=== PATIENT | male | born 1935 | race Caucasian/White ===

== ENCOUNTER 2018-08-08 17:55 | Emergency (ER) | payer MEDICARE, OTHER ==
[2018-08-08] MEDS ORDERED: Morphine VIAL* 10 MG/ML 1 ML VIAL IM ONE ×2 (18:37→21:10)
[2018-08-08] MEDS ORDERED: Morphine VIAL* 4 MG/ML VIAL (1 ml vial) IV ONE ×2 (18:44→18:46)
--- NOTE | 2018-08-08 19:04 | ED ---
Lower Extremity - HPI Summary HPI Summary: 82 year old male presents with right knee pain today. He was mowing the lawn today and felt pain in his right knee. He states his left knee is normally the one that bothers him. He states he is not able to place weight on the area as it hurts so much. He denies any numbness or tingling. No pain in his calf muscles. No injury to the area. No fevers. No back pain. no chest pain or shortness of breath. No other symptoms. He took some liquid ibuprofen prior to coming. He is on Coumadin for history of blood clots. - History of Current Complaint Chief Complaint: EDExtremityLower Stated Complaint: KNEE PAIN Time Seen by Provider: 08/08/18 18:13 Pain Intensity: 10 - Allergies/Home Medications Allergies/Adverse Reactions: Allergies Allergy/AdvReac Type Severity Reaction Status Date / Time No Known Allergies Allergy Verified 08/03/14 15:36 Home Medications: Home Medications Warfarin TAB(*) [Coumadin TAB(*)] 4 mg PO EVERY OTHER DAY 08/08/18 [History Confirmed 08/08/18] PMH/Surg Hx/FS Hx/Imm Hx Endocrine/Hematology History: Reports: Hx Anticoagulant Therapy - on coumadin Denies: Hx Blood Disorders, Hx Blood Transfusions, Hx Bone Marrow Disease, Hx Diabetes, Hx Systemic Lupus Erythematosus, Hx Thyroid Disease Cardiovascular History: Reports: 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 Denies: Hx Congestive Heart Failure, Hx Embolism, Hx Hypotension, Hx Hypertension History: Denies: Hx Acute Renal Failure, Hx Benign Prostatic Hyperplasia, Hx Chronic Renal Failure, Hx Dialysis, Hx Kidney Infection, Hx Kidney Stones, Hx Renal Disease, Other Problems/Disorders Musculoskeletal History: Denies: Hx Rheumatoid Arthritis Sensory History: Reports: Hx Contacts or Glasses Opthamlomology History: Reports: Hx Contacts or Glasses - Cancer History Hx Chemotherapy: No - Surgical History Surgery Procedure, Year, and Place: Appendectomy Hx Anesthesia Reactions: No Infectious Disease History: No Infectious Disease History: Denies: Traveled Outside the [place] in Last 30 Days - Family History Known Family History: Positive: Cardiac Disease - Social History Alcohol Use: None Substance Use Type: Reports: None Smoking Status (MU): Never Smoked Tobacco Have You Smoked in the Last Year: No Review of Systems Negative: Fever Negative: Chest Pain Negative: Shortness Of Breath Positive: Myalgia - right knee pain All Other Systems Reviewed And Are Negative: Yes Physical Exam Triage Information Reviewed: Yes Vital Signs On Initial Exam: Initial Vitals Temp Pulse Resp BP Pulse Ox 98.0 F 90 16 173/78 96 08/08/18 18:05 08/08/18 18:05 08/08/18 18:05 08/08/18 18:05 08/08/18 18:05 Vital Signs Reviewed: Yes Appearance: Positive: Well-Appearing Skin: Positive: Warm, Dry Head/Face: Positive: Normal Head/Face Inspection Eyes: Positive: Normal, Conjunctiva Clear ENT: Positive: Pharynx normal Respiratory/Lung Sounds: Positive: Clear to Auscultation, Breath Sounds Present Cardiovascular: Positive: Normal, RRR Musculoskeletal: Positive: Limited @ - right knee, Edema Right - knee, Other - good pulses, pos ballotments, nontender calf, able to wiggle toe. Negative: Cathy Sign Right Neurological: Positive: Normal Psychiatric: Positive: Normal Diagnostics - Vital Signs Vital Signs Temp Pulse Resp BP Pulse Ox 08/08/18 18:47 18 08/08/18 18:05 98.0 F 90 16 173/78 96 - Laboratory Result Diagrams: 08/08/18 19:11 08/08/18 19:11 Lab Statement: Any lab studies that have been ordered have been reviewed, and results considered in the medical decision making process. - Radiology knee Radiology Interpretation Completed By: ED Physician Summary of Radiographic Findings: arthritis - Ultrasound No standard instances Ultrasound Interpretation Completed By: Radiologist Summary of Ultrasound Findings: IMPRESSION: There is a nonocclusive DVT noted in the distal right femoral vein that extends. into the popliteal vein. Re-Evaluation - Re-Evaluation First Eval Re-Evaluation Time: 21:17 Change: Improved Comment: after pain medication has full ROM Lower Extremity Course/Dx - Course Course Of Treatment: 82 year old male presents with right knee pain today. He was mowing the lawn today and felt pain in his right knee. He states his left knee is normally the one that bothers him. He states he is not able to place weight on the area as it hurts so much. He denies any numbness or tingling. No pain in his calf muscles. No injury to the area. No fevers. No back pain. no chest pain or shortness of breath. No other symptoms. He took some liquid ibuprofen prior to coming. He is on Coumadin for history of blood clots. on exam has edema to right knee. neurovascular intact. no erythema to knee. limited ROM with pain of knee. xray shows arthritis. u/s shows dvt unclear if chronic or not. discussed with dr farnsworth and dr terry and will not change anticoagulants at this time. will have follow up with primary to figure out if chornic or not. crp and esr normal so unlikely septic. patient was given a walker and was able to transition to a wheelchair okay. told to follow up with ortho. patient understand and agrees with plan. - Diagnoses Differential Diagnosis/HQI/PQRI: Positive: DVT, Fracture (Closed), Septic Arthritis, Sprain Provider Diagnoses: Right knee pain Discharge - Sign-Out/Discharge Documenting (check all that apply): Patient Departure - Discharge Plan Condition: Good Disposition: HOME Prescriptions: oxyCODONE ORAL.SOLN* [Oxycodone ORAL.SOLN 5 mg/5 ml *] 2.5 - 5 mg PO Q6HR #80 ml MDD 15ml Patient Education Materials: Knee Pain (ED) Referrals: Timoteo Cortez MD [Primary Care Provider] - Dayanara Murcia MD [Medical Doctor] - Additional Instructions: take tyenlol every 6 hours for pain take 2.5ml or 5ml depending on intensity of pain every 6 hours as needed for pain Follow up with ortho Return to ED if develop any new or worsening symptoms - Billing Disposition and Condition Condition: GOOD Disposition: Home
[2018-08-08 19:22] LABS: ABS Basophils 0.1 10^3/ul (0-0.2); ABS Eosinophils 0 10^3/ul (0-0.6); ABS Monocytes 0.8 10^3/ul (0-0.8); ABS Neutrophils 11.9 10^3/ul (1.5-7.7); ABS Nucleated RBC 0 10^3/ul; Eosinophil % 0.3 % (0-6); Hematocrit 50 % (42-52); Hemoglobin 16.6 g/dl (14.0-18.0); Lymphocyte % 7.2 % (25-47); Mean Corpuscular HGB Conc 33 g/dl (31-36); Mean Corpuscular Hemoglobin 30 pg (27-31); Mean Corpuscular Volume 89 fL (80-94); Mean Platelet Volume 7.4 fL (7.4-10.4); Nucleated Red Blood Cells % 0; Platelet Count 255 10^3/ul (150-450); Red Blood Count 5.58 10^6/ul (4.00-5.40); Red Cell Distribution Width 15 % (10.5-15); White Blood Count 13.8 10^3/ul (3.5-10.8)
[2018-08-08 19:34] LABS: INR 2.9 (0.77-1.02)
[2018-08-08 20:58] LABS: EGFR Non-African American 80.2 (>60)
[2018-08-08] MEDS ORDERED: Warfarin TAB(*) 4 MG PO ONE (21:02)
[2018-08-08 23:15] VITALS: BP 147/84
== END 2018-08-08 23:45 | disposition home or self-care (01) ==
LOC: ED 17:55
DX: M25.561 Pain in right knee (principal); Z86.718 Personal history of other venous thrombosis and embolism; Z79.01 Long term (current) use of anticoagulants
CPT/HCPCS: 36415; 80053; 85025; 85610; 85652; 86140; 86618; 96372; 96374; 96376; 99282; A9270-GY; J2270